=== PATIENT | female | born 1960 | race Two or more races ===

== ENCOUNTER → 2019-10-01 | Outpatient (CLI) | payer OTHER ==
[~2019-10-01] MED LIST: ALBU2.5V8 IH; BUPIVACAINE MPF 0.25% 10 ML VIAL. ONE; CITA10TA8 PO; CRESTOR5 MG PO; DAPA5TAB PO; DULA0.75 SQ; IRBE300T3 PO; METF500T16 PO; NAPR-514 PO; OMEP20TA63 PO; methylPREDNISolone ACETATE 40 MG/ML VIAL. ONE
[2019-10-01 15:13] VITALS: BP 117/71
== END ==
LOC: SURG 13:33
PROVIDERS: ATTEND Anesthesiology Pain Medicine
DX: M79.18 Myalgia, other site (principal); E11.9 Type 2 diabetes mellitus without complications; J32.9 Chronic sinusitis, unspecified; Z79.84 Long term (current) use of oral hypoglycemic drugs
CPT/HCPCS: 20552; J1030; J3490